=== PATIENT | male | born 1935 | race Caucasian/White ===

== ENCOUNTER 2018-08-03 12:41 | Inpatient (IN) | payer OTHER ==
[~2018-08-03] VITALS: Ht 175.3 cm; Wt 57.6 kg
[~2018-08-03 12:41] MED LIST: ACID REDUCER75 MG PO; ATENOLOL-CHLORT1 TA2 PO; INTESTINEX680 MG PO; NEURIN SL; OMEGA 3 500 SO1 EACH PO; OSTERA TABLET1 EACH PO; PROSTATE PQ TA1 EACH PO; REGLAN5 MG/5 ML; ZOCOR5 MG PO
[2018-08-03] MEDS ORDERED: TORADOL60 MG (13:17)
[2018-08-03] MEDS ORDERED: PROTONIX40 MG (13:17)
== END 2018-08-05 14:52 | disposition home or self-care (01) | DRG 641 ==
LOC: ER 12:41 → MEDI 23:46
PROVIDERS: ADMIT Specialist
PROC: BW21Y0Z Computerized Tomography (CT Scan) of Abdomen and Pelvis using Other Contrast, Unenhanced and Enhanced (ICD-10-PCS; principal; 2018-08-03)
DX: E86.0 Dehydration (principal); I45.2 Bifascicular block; I70.0 Atherosclerosis of aorta; E88.81 Metabolic syndrome and other insulin resistance; R73.02 Impaired glucose tolerance (oral)